=== PATIENT | female | born 1955 | race Hispanic/Latino ===

== ENCOUNTER 2017-03-31 19:33 | Inpatient (IN) | payer SELFPAY ==
[~2017-03-31] VITALS: Ht 154.9 cm; Wt 86.2 kg
[2017-03-31] MEDS ORDERED: ATROPINE SULFATE 0.1 MG/ML 10 ML SYG IVP ONE (19:52)
[2017-03-31 19:54] LABS: BASOPHILS % (AUTO) 0.4 % (0.0-5.0); EOSINOPHILS % (AUTO) 1.2 % (0.0-8.0); HEMATOCRIT 41.9 % (36-48); LYMPHOCYTES % (AUTO) 51.7 % (21.0-51.0); MEAN CORPUSCULAR HEMOGLOBIN 31.2 pg (27.0-33.0); MEAN CORPUSCULAR HGB CONC 34.3 g/dL (32.0-36.0); MEAN CORPUSCULAR VOLUME 91.1 fL (79-99); MONOCYTES % (AUTO) 6.6 % (3.0-13.0); NEUTROPHILS % (AUTO) 40.1 % (40.0-77.0); PLATELET COUNT (AUTO) 187 K/uL (130-400); RED CELL DISTRIBUTION WIDTH 13.8 % (11.0-15.5); WHITE BLOOD COUNT (AUTO) 7.8 K/uL (4.8-10.8)
[2017-03-31] MEDS ORDERED: NOREPINEPHRINE BITARTRATE 1 MG/1 ML ML IV ONE (19:57)
[2017-03-31] MEDS ORDERED: SODIUM CHLORIDE 0.9% 250 ML IV ONE (19:57)
[2017-03-31 20:04] LABS: INR 1.02 (0.85-1.15); PARTIAL THROMBOPLASTIN TIME 25.4 SEC (26.3-35.5); PROTHROMBIN TIME 10.7 SEC (9.6-11.6)
[2017-03-31 20:06] LABS: CREATININE 0.8 mg/dL (0.5-1.5); POTASSIUM 3.5 mmol/L (3.5-5.1)
[2017-03-31 20:20] LABS: ALBUMIN 3.3 g/dL (3.5-5.0); BILIRUBIN,TOTAL 0.3 mg/dL (0.2-1.0); CREATINE KINASE MB 0.5 ng/mL (0.5-3.6); TOTAL PROTEIN, SERUM 7.9 g/dL (6.0-8.3)
[2017-03-31] MEDS ORDERED: FENTANYL CITRATE PF 50 MCG/1 ML 2ML VIAL ONE (21:55)
[2017-03-31] MEDS ORDERED: ONDANSETRON HCL 4 MG/2 ML VIAL ONE (21:55)
[2017-03-31] MEDS ORDERED: LORAZEPAM 2 MG/ML 1 ML VIAL ONE (21:56)
[2017-03-31] MEDS ORDERED: AMIODARONE HCL 900MG/18ML IV ONE (21:57)
[2017-03-31] MEDS ORDERED: DEXTROSE 5%-WATER 500 ML IV ONE (21:59)
[2017-03-31] MEDS ORDERED: ASPIRIN 325 MG TABLET ONE (22:20)
[2017-03-31] MEDS ORDERED: IOPAMIDOL-370 100 ML VIAL IV ONE (23:39)
[2017-03-31] MEDS ORDERED: HYDROCORTISONE SOD SUCCINATE 100 MG/2 ML VIAL ONE (23:41)
[2017-03-31] MEDS ORDERED: LEVOTHYROXINE 25 MCG TABLET ONE (23:41)
[2017-04-01] VITALS (17 sets, daily range): BP systolic 110–165; BP diastolic 44–93
[2017-04-01] MEDS ORDERED: ASPI-555 PO (03:21)
[2017-04-01] MEDS ORDERED: HYDRALAZINE HCL 20 MG/ML VIAL IV PRN (06:00)
[2017-04-01] MEDS ORDERED: ONDANSETRON HCL 4 MG/2 ML VIAL IV PRN ×2 (06:00→09:45)
[2017-04-01] MEDS ORDERED: CEFAZOLIN 1GM / D5W 50ML 150 ML ONE (07:13)
[2017-04-01] MEDS ORDERED: BUPIVACAINE/PF 0.25% 30ML VIAL IJ ONE (07:13)
[2017-04-01] MEDS ORDERED: ISOVUE-370 50ML VIAL IV ONE (07:13)
[2017-04-01] MEDS ORDERED: MIDAZOLAM HCL 1 MG/ML 2ML VIAL ONE (07:14)
[2017-04-01] MEDS ORDERED: FENTANYL CITRATE PF 50 MCG/1 ML 2ML VIAL ONE (07:14)
[2017-04-01] MEDS ORDERED: LIDOCAINE HCL 1% MDV 50ML VIAL ONE (07:14)
[2017-04-01] MEDS: FAMOTIDINE 20MG TAB 20 MG TAB PO SCH ×2 (08:15→20:36)
[2017-04-01] MEDS ORDERED: OCTYL 2-CYANOACRYLATE 1 EACH TP ONE (09:25)
[2017-04-01] MEDS ORDERED: TEMAZEPAM 30 MG CAP PO PRN (09:45)
[2017-04-01] MEDS: ACETAMINOPHEN 325 MG TAB PO PRN (18:10)
[2017-04-02] VITALS: BP 129/55
[2017-04-02 03:51] LABS: BASOPHILS % (AUTO) 0.4 % (0.0-5.0); EOSINOPHILS % (AUTO) 0.8 % (0.0-8.0); HEMATOCRIT 35.4 % (36-48); LYMPHOCYTES % (AUTO) 37.7 % (21.0-51.0); MEAN CORPUSCULAR HEMOGLOBIN 31.4 pg (27.0-33.0); MEAN CORPUSCULAR HGB CONC 34.6 g/dL (32.0-36.0); MEAN CORPUSCULAR VOLUME 90.8 fL (79-99); MONOCYTES % (AUTO) 5.1 % (3.0-13.0); PLATELET COUNT (AUTO) 158 K/uL (130-400); RED CELL DISTRIBUTION WIDTH 13.8 % (11.0-15.5); WHITE BLOOD COUNT (AUTO) 6.6 K/uL (4.8-10.8)
[2017-04-02 04:00] VITALS: BP 157/71
[2017-04-02 04:06] LABS: CREATININE 0.8 mg/dL (0.5-1.5); POTASSIUM 3.6 mmol/L (3.5-5.1)
[2017-04-02 07:00] VITALS: BP 159/81
[2017-04-02] MEDS: ACETAMINOPHEN 325 MG TAB PO PRN (07:42)
[2017-04-02] MEDS: FAMOTIDINE 20MG TAB 20 MG TAB PO SCH (07:42)
[2017-04-02 11:00] VITALS: BP 154/87
[2017-04-02] MEDS ORDERED: AMIODARONE HCL 900MG/18ML IV ONE (12:00)
[2017-04-02] MEDS ORDERED: ATROPINE SULFATE 0.1 MG/ML 10 ML SYG IVP ONE (12:00)
[2017-04-02] MEDS ORDERED: METO25TA6 PO ×2 (13:09→13:54)
[2017-04-02] MEDS ORDERED: POLY17PO4 PO (13:54)
== END 2017-04-02 16:00 | disposition home or self-care (01) | DRG 243 ==
LOC: EDH 19:33 → EDHIP 19:34 → 2BH 04-01 00:23
PROVIDERS: ADMIT Family Medicine; ATTEND Family Medicine
PROC: 0JH606Z Insertion of Pacemaker, Dual Chamber into Chest Subcutaneous Tissue and Fascia, Open Approach (ICD-10-PCS; principal; 2017-04-01)
PROC: 02H63JZ Insertion of Pacemaker Lead into Right Atrium, Percutaneous Approach (ICD-10-PCS; 2017-04-01)
PROC: 02HK3JZ Insertion of Pacemaker Lead into Right Ventricle, Percutaneous Approach (ICD-10-PCS; 2017-04-01)
DX: I44.2 Atrioventricular block, complete (principal); E87.2 Acidosis; R00.1 Bradycardia, unspecified; I10 Essential (primary) hypertension; R79.1 Abnormal coagulation profile; Z98.891 History of uterine scar from previous surgery; Z88.6 Allergy status to analgesic agent
CPT/HCPCS: 33208; 36415; 71045; 71046; 71275; 80048; 80053; 82550; 82553; 83605; 83735; 83880; 84439; 84443; 84484; 85025; 85378; 85610; 85651; 85730; 93005; 99152; 99153; 99291; C1785; J0282; J0461; J0690; J1720; J2060; J2250; J2405; J3010; J3490; J7030; J7060; Q9967

== ENCOUNTER 2018-04-09 03:23 | Emergency (ER) | payer SELFPAY ==
[~2018-04-09 03:23] MED LIST: ASPI-555 PO; METO25TA6 PO; POLY17PO4 PO
[2018-04-09 04:03] LABS: BASOPHILS % (AUTO) 0.8 % (0.0-5.0); EOSINOPHILS % (AUTO) 1.8 % (0.0-8.0); HEMATOCRIT 40.9 % (36-48); LYMPHOCYTES % (AUTO) 41.5 % (21.0-51.0); MEAN CORPUSCULAR HGB CONC 33.9 g/dL (32.0-36.0); MEAN CORPUSCULAR VOLUME 91.4 fL (79-99); MONOCYTES % (AUTO) 6.4 % (3.0-13.0); NEUTROPHILS % (AUTO) 49.5 % (40.0-77.0); NUCLEATED RED BLOOD CELLS 0.1 % (0.0-0.19); PLATELET COUNT (AUTO) 204 K/uL (130-400); RED BLOOD CELL COUNT(AUTO) 4.48 MIL/uL (4.00-5.50); RED CELL DISTRIBUTION WIDTH 13.5 % (11.0-15.5)
[2018-04-09 04:12] LABS: CREATININE 0.6 mg/dL (0.5-1.5); POTASSIUM 3.7 mmol/L (3.5-5.1)
[2018-04-09 04:16] LABS: ALBUMIN 3.2 g/dL (3.5-5.0); BILIRUBIN,TOTAL 0.2 mg/dL (0.2-1.0); TOTAL PROTEIN, SERUM 7.9 g/dL (6.0-8.3)
[2018-04-09 04:20] LABS: APPEARANCE,URINE Clear (CLEAR); BILIRUBIN,URINE Negative (NEGATIVE); COLOR,URINE Yellow (YELLOW); GLUCOSE, URINE (UA) Negative (NEGATIVE); KETONES,URINE Negative (NEGATIVE); LEUKOCYTE ESTERASE ,URINE Negative (NEGATIVE); NITRATE,URINE Negative (NEGATIVE); OCCULT BLOOD,URINE Negative (NEGATIVE); PROTEIN,URINE Negative (NEGATIVE); UROBILINOGEN,URINE 0.2 mg/dL (0.2-1.0)
[2018-04-09] MEDS ORDERED: ASPIRIN 325 MG TABLET ONE (05:28)
== END 2018-04-09 05:51 | disposition home or self-care (01) ==
LOC: EDH 03:23
DX: I49.9 Cardiac arrhythmia, unspecified (principal); R20.2 Paresthesia of skin; I10 Essential (primary) hypertension; Z88.6 Allergy status to analgesic agent; Z96.89 Presence of other specified functional implants
CPT/HCPCS: 36415; 70450; 71045; 72125; 73030; 80053; 81003; 82550; 84484; 85025; 93005

== ENCOUNTER 2022-08-01 17:33 | Observation (INO) | payer OTHER ==
[~2022-08-01] VITALS: Ht 154.9 cm; Wt 68.0 kg
[~2022-08-01 17:33] MED LIST changes: -ASPI-555 PO; +ASPI-556 PO
[2022-08-01 18:21] LABS: BASOPHILS % (AUTO) 0.4 % (0.0-5.0); EOSINOPHILS % (AUTO) 2.3 % (0.0-8.0); HEMATOCRIT 41.2 % (36-48); LYMPHOCYTES % (AUTO) 47.2 % (21.0-51.0); MEAN CORPUSCULAR HEMOGLOBIN 30.5 pg (27.0-33.0); MEAN CORPUSCULAR HGB CONC 33.5 g/dL (32.0-36.0); MEAN CORPUSCULAR VOLUME 91.2 fL (79-99); MONOCYTES % (AUTO) 6.8 % (3.0-13.0); NEUTROPHILS % (AUTO) 43.3 % (40.0-77.0); PLATELET COUNT (AUTO) 181 K/uL (130-400); RED BLOOD CELL COUNT(AUTO) 4.52 MIL/uL (4.00-5.50); RED CELL DISTRIBUTION WIDTH 13.1 % (11.0-15.5); WHITE BLOOD COUNT (AUTO) 5.7 K/uL (4.8-10.8)
[2022-08-01 18:51] LABS: ALBUMIN 3.4 g/dL (3.5-5.0); CREATININE 0.7 mg/dL (0.5-1.5); MAGNESIUM 1.9 mg/dL (1.80-2.40); POTASSIUM 3.9 mmol/L (3.5-5.1); TOTAL PROTEIN, SERUM 7.9 g/dL (6.0-8.3)
[2022-08-01 20:16] LABS: APPEARANCE,URINE CLEAR (CLEAR); BILIRUBIN,URINE NEGATIVE (NEGATIVE); COLOR,URINE LIGHT-YELLOW (YELLOW); GLUCOSE, URINE (UA) NEGATIVE (NEGATIVE); KETONES,URINE NEGATIVE (NEGATIVE); LEUKOCYTE ESTERASE ,URINE NEGATIVE Leu/uL (NEGATIVE); NITRATE,URINE NEGATIVE (NEGATIVE); OCCULT BLOOD,URINE NEGATIVE (NEGATIVE); PH,URINE 6.5 (5.0-8.0); PROTEIN,URINE NEGATIVE (NEGATIVE); UROBILINOGEN,URINE 0.2 mg/dL (0.2-1.0)
[2022-08-01 20:28] LABS: MUCUS,URINE RARE LPF (None Seen); RBC,URINE 0-1 /HPF (0-1); SQUAMOUS EPITHELIAL CELL,UR RARE /HPF (0-2); WBC,URINE 0-1 /HPF (0-1)
[2022-08-01 20:42] LABS: INR 0.96 (0.85-1.15); PROTHROMBIN TIME 10.5 SEC (9.6-11.6)
[2022-08-01] MEDS ORDERED: PRED20TA3 PO (21:40)
[2022-08-01] MEDS ORDERED: ONDANSETRON 4MG INJ IV PRN (22:30)
[2022-08-01] MEDS ORDERED: NITROGLYCERIN 0.4 MG SL TAB SL PRN (22:30)
[2022-08-01] MEDS ORDERED: ACETAMINOPHEN 325 MG TAB PO PRN ×2 (22:30)
[2022-08-01 22:42] LABS: HEMOGLOBIN A1C 5.2 % (4.0-6.0)
[2022-08-01 22:53] LABS: BASOPHILS % (AUTO) 0.4 % (0.0-5.0); EOSINOPHILS % (AUTO) 2.2 % (0.0-8.0); HEMATOCRIT 40.2 % (36-48); LYMPHOCYTES % (AUTO) 52.2 % (21.0-51.0); MEAN CORPUSCULAR HEMOGLOBIN 30.4 pg (27.0-33.0); MEAN CORPUSCULAR HGB CONC 32.8 g/dL (32.0-36.0); MEAN CORPUSCULAR VOLUME 92.6 fL (79-99); MONOCYTES % (AUTO) 6.9 % (3.0-13.0); NEUTROPHILS % (AUTO) 38.1 % (40.0-77.0); PLATELET COUNT (AUTO) 166 K/uL (130-400); RED BLOOD CELL COUNT(AUTO) 4.34 MIL/uL (4.00-5.50); WHITE BLOOD COUNT (AUTO) 5.4 K/uL (4.8-10.8)
[2022-08-01] MEDS: ASPIRIN 81 MG EC TAB PO SCH (23:08)
[2022-08-01 23:11] LABS: ALBUMIN 3.2 g/dL (3.5-5.0); CREATININE 0.6 mg/dL (0.5-1.5); MAGNESIUM 1.8 mg/dL (1.80-2.40); POTASSIUM 3.7 mmol/L (3.5-5.1)
[2022-08-02] MEDS ORDERED: ARTIFICIAL TEARS 3.5 GM OINTMENT OD PRN (02:00)
[2022-08-02] MEDS ORDERED: ACYCLOVIR 1000 MG VIAL IV SCH (02:00)
[2022-08-02] MEDS: PREDNISONE 20 MG TABLET PO SCH ×2 (02:39→09:43)
[2022-08-02] MEDS ORDERED: ACYCLOVIR IV SCH (03:00)
[2022-08-02] MEDS ORDERED: [UNRECOGNIZED DRUG - OTHER] IV SCH (03:00)
[2022-08-02] MEDS ORDERED: ENOXAPARIN SODIUM 30 MG/0.3 ML SQ SCH (09:00)
[2022-08-02] MEDS: FAMOTIDINE 20MG TAB PO SCH ×2 (09:00→21:20)
[2022-08-02] MEDS: ASPIRIN 81 MG EC TAB PO SCH (09:43)
[2022-08-02] MEDS: METOPROLOL TARTRATE 25 MG TAB PO SCH ×2 (09:43→21:19)
[2022-08-02] MEDS: ARTIFICAL TEARS SOL 15 ML OD SCH ×2 (11:30→20:42)
[2022-08-02] MEDS: INSULIN HUMULIN R 100 UNIT/ML 3ML SQ SCH ×3 (11:30→21:00)
[2022-08-02] MEDS: VALACYCLOVIR HCL 500 MG TABLET PO SCH ×2 (13:18→17:35)
[2022-08-02] MEDS ORDERED: 0.9%NACL 1000ML 1,000 ML IV SCH (20:00)
[2022-08-02] MEDS ORDERED: IOHEXOL 350 MG/ML 100ML INFUS..BTL IV ONE (20:13)
[2022-08-03 02:00] VITALS: BP 116/41
[2022-08-03] MEDS: VALACYCLOVIR HCL 500 MG TABLET PO SCH ×2 (02:14→08:32)
[2022-08-03] MEDS ORDERED: METO25 PO (02:42)
[2022-08-03] MEDS ORDERED: DOXY100T2 PO (02:42)
[2022-08-03] MEDS: ARTIFICAL TEARS SOL 15 ML OD SCH ×2 (03:30→12:01)
[2022-08-03 04:43] VITALS: BP 116/41
[2022-08-03 06:11] LABS: BASOPHILS % (AUTO) 0.1 % (0.0-5.0); EOSINOPHILS % (AUTO) 0.2 % (0.0-8.0); HEMATOCRIT 37.6 % (36-48); LYMPHOCYTES % (AUTO) 22.1 % (21.0-51.0); MEAN CORPUSCULAR HEMOGLOBIN 31.1 pg (27.0-33.0); MEAN CORPUSCULAR VOLUME 91.3 fL (79-99); MONOCYTES % (AUTO) 5.3 % (3.0-13.0); PLATELET COUNT (AUTO) 163 K/uL (130-400); RED BLOOD CELL COUNT(AUTO) 4.12 MIL/uL (4.00-5.50); RED CELL DISTRIBUTION WIDTH 12.9 % (11.0-15.5); WHITE BLOOD COUNT (AUTO) 12.7 K/uL (4.8-10.8)
[2022-08-03 06:37] LABS: ALBUMIN 2.9 g/dL (3.5-5.0); CREATININE 0.5 mg/dL (0.5-1.5); POTASSIUM 4.4 mmol/L (3.5-5.1); TOTAL PROTEIN, SERUM 6.9 g/dL (6.0-8.3)
[2022-08-03] MEDS: INSULIN HUMULIN R 100 UNIT/ML 3ML SQ SCH ×2 (06:57→11:30)
[2022-08-03 08:00] VITALS: BP 114/30
[2022-08-03] MEDS: FAMOTIDINE 20MG TAB PO SCH (08:25)
[2022-08-03] MEDS: METOPROLOL TARTRATE 25 MG TAB PO SCH (08:25)
[2022-08-03] MEDS: PREDNISONE 20 MG TABLET PO SCH (08:25)
[2022-08-03] MEDS: ASPIRIN 81 MG EC TAB PO SCH (08:25)
[2022-08-03] MEDS ORDERED: PANT20TA PO (11:51)
[2022-08-03] MEDS ORDERED: VALA100031 PO (11:51)
[2022-08-03] MEDS ORDERED: AEC81 PO (11:51)
[2022-08-03] MEDS ORDERED: PRED20TA3 PO (11:51)
[2022-08-03 12:00] VITALS: BP 124/49
== END 2022-08-03 15:37 | disposition home or self-care (01) ==
LOC: EDH 17:33 → EDHIP 22:27 → 3CH 08-03 02:00
PROVIDERS: ADMIT Family Medicine; ATTEND Family Medicine
DX: R07.89 Other chest pain (principal); I10 Essential (primary) hypertension; G51.0 Bell's palsy; E78.2 Mixed hyperlipidemia; R00.1 Bradycardia, unspecified; I45.9 Conduction disorder, unspecified; R29.701 NIHSS score 1; Z79.82 Long term (current) use of aspirin; Z95.0 Presence of cardiac pacemaker; Z86.73 Personal history of transient ischemic attack (TIA), and cerebral infarction without residual deficits; Z86.74 Personal history of sudden cardiac arrest
CPT/HCPCS: 80053 ×3; 99285; 83036; 82550 ×2; 83735 ×3; 84484 ×3; 80061; 83880; 85025 ×3; 85610; 81001; 36415 ×3; 71045; 70450; 93005 ×2; 93970 ×2; 96360; 96361 ×2; 83874; 82948 ×5; 70496; 70498; G0378 ×41; Q9967